=== PATIENT | male | born 1995 | race Caucasian/White ===

== ENCOUNTER 2017-08-12 18:01 | Emergency (ER) | payer BC, OTHER ==
[2017-08-12 18:07] VITALS: BP 128/76; PULSE 86; RESP 16; TEMP 98.9; O2SAT 100
--- NOTE | 2017-08-12 18:45 | ED PDOC ---
HPI: Abdomen Time Seen by Provider: 08/12/17 18:36 Chief Complaint (Nursing): Abdominal Pain Chief Complaint (Provider): Abdominal pain History Per: Patient History/Exam Limitations: no limitations Onset/Duration Of Symptoms: Days (5) Outside of [place] travel?: No Current Symptoms Are (Timing): Still Present Location Of Pain/Discomfort: LLQ Quality Of Discomfort: "Pain" Associated Symptoms: denies: Fever, Chills, Nausea, Vomiting Exacerbating Factors: Movement Additional History Per: Patient Additional Complaint(s): 22yo male, no pertinent medical history, presents to ER for evaluation of left lower quadrant abdominal pain, present for the past 5 days. Patient states the pain started after he lifted something heavy at work. He states the pain worsens with movement and he also has pain upon urination. He denies any hematuria, fever, nausea, vomiting, testicular pain or penile discharge. No other complaints. Past Medical History Reviewed: Historical Data, Nursing Documentation, Vital Signs Vital Signs: Last Vital Signs Temp 98.9 F 08/12/17 18:05 Pulse 86 08/12/17 18:05 Resp 16 08/12/17 18:05 BP 128/76 08/12/17 18:05 Pulse Ox 100 08/12/17 18:47 - Medical History PMH: Migraine - Surgical History Surgical History: No Surg Hx - Family History Family History: States: Diabetes - Home Medications Home Medications: Ambulatory Orders Medication Instructions Recorded Acetaminophen/Butalbital/Caf 1 tab PO Q8 #30 tab 03/14/14 [Fioricet 325 mg-50 mg-40 mg] Tizanidine Hydrochloride 4 mg PO Q6 PRN #20 tab 03/16/15 [Tizanidine HCl] Tramadol Hydrochloride [Tramadol 50 mg PO Q6H PRN #20 tab 03/16/15 HCl] Clotrimazole 1% Cream [Lotrimin 1% 15 applic EXT BID #1 tube 03/26/15 CREAM] Naproxen 1 tab PO TID PRN #21 tab 08/22/15 Naproxen [Naprosyn] 500 mg PO BID PRN #15 tablet 08/12/17 - Allergies Allergies/Adverse Reactions: Allergies Allergy/AdvReac Type Severity Reaction Status Date / Time No Known Allergies Allergy Verified 03/16/15 17:56 Review of Systems ROS Statement: Except As Marked, All Systems Reviewed And Found Negative Constitutional: Negative for: Fever, Chills Gastrointestinal: Positive for: Abdominal Pain. Negative for: Nausea, Vomiting Genitourinary Male: Positive for: Dysuria. Negative for: Hematuria, Penile Discharge, Scrotal Pain, Penile Pain Physical Exam - Reviewed Nursing Documentation Reviewed: Yes Vital Signs Reviewed: Yes - Physical Exam Appears: Positive for: Non-toxic, No Acute Distress Head Exam: Positive for: ATRAUMATIC, NORMAL INSPECTION, NORMOCEPHALIC Skin: Positive for: Normal Color Eye Exam: Positive for: Normal appearance Neck: Positive for: Supple Cardiovascular/Chest: Positive for: Regular Rate, Rhythm Respiratory: Positive for: Normal Breath Sounds. Negative for: Respiratory Distress Gastrointestinal/Abdominal: Positive for: Soft, Tenderness (left lowerquadrant) . Negative for: Guarding, Rebound Male Genital Exam: Positive for: normal genitalia, no hernia. Negative for: scrotum tenderness (R), scrotum tenderness (L), testicular tenderness (R), testicular tenderness (L), urethral discharge Extremity: Positive for: Normal ROM Neurologic/Psych: Positive for: Alert, Oriented. Negative for: Motor/Sensory Deficits - Laboratory Results Result Diagrams: 08/12/17 18:50 08/12/17 18:50 - ECG O2 Sat by Pulse Oximetry: 100 (RA) Pulse Ox Interpretation: Normal Medical Decision Making Medical Decision Making: Impression: Abdominal Pain Plan: -- Labs -- Morphine 2mg IV -- CT Abdomen & Pelvis w/ IV Contrast Accession No. : [id number] Patient Name / ID : RANCHO DUBOIS / [id number] Exam Date : 08/12/2017 22:59:10 ( Approved ) Study Comment : Sex / Age : M / 22Y Creator : Meño Hillman MD Dictator : Security Clerk : Manager Pet : Meño Hillman MD Approver2 : Report Date : 08/12/2017 23:24:00 My Comment : [facility] Division of Radiology [address] [facility] [address] Tel. no. Patient Name: SILVINO VICKERS Pt. Address: [address] [place] [address]. Rec #: [id number] [place] [address]: Irasema FLORES,Shruti Spear Pt CELL Order Location: [place] : 1995 Male Age: 22 Order #: [id number] Reason for exam: LLQ pain CT Scan ABD PELVIS IV CONTRAST ONLY Exam Date: 08/12/17 This imaging exam was performed at [facility] EXAM: CT Abdomen and Pelvis With Intravenous Contrast CLINICAL HISTORY: 22 years old, male; Pain; Abdominal pain; Localized; Left; Patient HX: Llq pain TECHNIQUE: Axial computed tomography images of the abdomen and pelvis with intravenous contrast. All CT scans at this facility use one or more dose reduction techniques, viz.: automated exposure control; ma/kV adjustment per patient size (including targeted exams where dose is matched to indication; i.e. head); or iterative reconstruction technique. Coronal and sagittal reformatted images were created and reviewed. CONTRAST: 98 mL of OMNIPAQUE administered intravenously. COMPARISON: CT ABD 2013-08-27 22:03 FINDINGS: Lower thorax: No acute findings. ABDOMEN: Liver: Fatty infiltration. Gallbladder and bile ducts: No calcified stones. No ductal dilation. Pancreas: No ductal dilation. No mass. Spleen: No splenomegaly. Adrenals: No mass. Kidneys and ureters: No mass. No hydronephrosis. Stomach and bowel: Segmental areas of probable underdistention of LEFT colon. No definite mural thickening. No obstruction. Fat containing lesion with hyperdense rim and adjacent stranding along border of descending colon. Appendix: Normal caliber. No inflammation. PELVIS: Bladder: Unremarkable. Reproductive: Unremarkable as visualized. ABDOMEN and PELVIS: Intraperitoneal space: No significant fluid collection. No free air. Bones/joints: No acute fracture. Soft tissues: Tiny umbilical hernia containing fat. Vasculature: Unremarkable. No aneurysm. Lymph nodes: No pathologically enlarged lymph nodes. IMPRESSION: 1. Epiploic appendagitis of descending colon. 2. Incidental/non-acute findings are described above. Dictated By: Meño Hillman MD Dictated Date/Time: 08/12/172323 Signed By: Meño Hillman MD Date Signed: 2323 Transcribed By: XAVIER Transcribe Date/Time : 08/12/172323 [id number]/NICK Scribe Attestation: Documented by Susie Titus acting as a scribe for Shruti Villalpando MD. Provider Attestation: All medical record entries made by the Scribe were at my direction and personally dictated by me. I have reviewed the chart and agree that the record accurately reflects my personal performance of the history, physical exam, medical decision making, and the department course for this patient. I have also personally directed, reviewed, and agree with the discharge instructions and disposition. Disposition - Clinical Impression Clinical Impression: Epiploic appendagitis - Disposition Referrals: [facility] [Outside] Chidi Salgado MD [Staff Provider] - Disposition: Routine/Home Disposition Time: 23:40 Condition: STABLE Prescriptions: Naproxen [Naprosyn] 500 mg PO BID PRN #15 tablet PRN Reason: Pain, Moderate (4-7) Instructions: Acute Abdomen (Belly Pain) Forms: [facility] (Hungarian)
[2017-08-12 19:24] LABS: BASO # 0.1 K/uL (0.0-0.2); BASO % 0.9 % (0.0-2.0); EOS # 0.5 K/uL (0.0-0.7); EOS % 4.6 % (0.0-4.0); HEMOGLOBIN 17.7 g/dL (12.0-18.0); LYMPH # 2.7 K/uL (1.0-4.3); LYMPH % 24.4 % (20.0-40.0); MEAN CELL VOLUME 86.5 fl (80.0-94.0); MEAN CORPUSCULAR HEMOGLOBIN 30.5 pg (27.0-31.0); MEAN CORPUSCULAR HGB CONC 35.3 g/dL (33.0-37.0); MEAN PLATELET VOLUME 7.6 fl (7.2-11.7); MONO # 0.8 K/uL (0.0-0.8); MONO % 7.3 % (0.0-10.0); NEUT % 62.8 % (50.0-75.0); NRBC % 0.2 % (0.0-0.0); RBC 5.8 Mil/uL (4.40-5.90); RED CELL DISTRIBUTION WIDTH 13.7 % (11.5-14.5); WHITE BLOOD COUNT 11.2 K/uL (4.8-10.8)
[2017-08-12 19:33] LABS: ALB/GLOB RATIO 1.1 (1.0-2.1); ALBUMIN 4.5 g/dL (3.5-5.0); CALCIUM 9.6 mg/dL (8.4-10.2); GFR AFRICAN-AMERICAN > 60; GFR NON-AFRICAN AMERICAN > 60
[2017-08-12 19:39] LABS: ALT/SGPT 53 U/L (21-72); AST/SGOT 41 U/L (17-59); BLOOD UREA NITROGEN 14 mg/dl (9-20)
[2017-08-12 19:54] LABS: URINE BILIRUBIN NEGATIVE (NEGATIVE); URINE BLOOD NEGATIVE (NEGATIVE); URINE CLARITY SLIGHTY-CLOUDY (Clear); URINE COLOR YELLOW (YELLOW); URINE GLUCOSE (UA) NEG (Normal); URINE LEUKOCYTE ESTERASE NEG Leu/uL (Negative); URINE PROTEIN NEGATIVE (NEGATIVE); URINE UROBILINOGEN 0.2-1.0 mg/dL (0.2-1.0)
[2017-08-12 19:56] LABS: PROTHROMBIN TIME 11.4 Seconds (9.8-13.1)
[2017-08-12 19:57] LABS: PARTIAL THROMBOPLASTIN TIME 34.2 Seconds (25.6-37.1)
[2017-08-12] MEDS ORDERED: Iohexol 300 100 ML IJ ONE (22:57)
--- NOTE | 2017-08-12 23:24 | CT ---
EXAM: CT Abdomen and Pelvis With Intravenous Contrast CLINICAL HISTORY: 22 years old, male; Pain; Abdominal pain; Localized; Left; Patient HX: Llq pain TECHNIQUE: Axial computed tomography images of the abdomen and pelvis with intravenous contrast. All CT scans at this facility use one or more dose reduction techniques, viz.: automated exposure control; ma/kV adjustment per patient size (including targeted exams where dose is matched to indication; i.e. head); or iterative reconstruction technique. Coronal and sagittal reformatted images were created and reviewed. CONTRAST: 98 mL of OMNIPAQUE administered intravenously. COMPARISON: CT ABD 2013-08-27 22:03 FINDINGS: Lower thorax: No acute findings. ABDOMEN: Liver: Fatty infiltration. Gallbladder and bile ducts: No calcified stones. No ductal dilation. Pancreas: No ductal dilation. No mass. Spleen: No splenomegaly. Adrenals: No mass. Kidneys and ureters: No mass. No hydronephrosis. Stomach and bowel: Segmental areas of probable underdistention of LEFT colon. No definite mural thickening. No obstruction. Fat containing lesion with hyperdense rim and adjacent stranding along border of descending colon. Appendix: Normal caliber. No inflammation. PELVIS: Bladder: Unremarkable. Reproductive: Unremarkable as visualized. ABDOMEN and PELVIS: Intraperitoneal space: No significant fluid collection. No free air. Bones/joints: No acute fracture. Soft tissues: Tiny umbilical hernia containing fat. Vasculature: Unremarkable. No aneurysm. Lymph nodes: No pathologically enlarged lymph nodes. IMPRESSION: 1. Epiploic appendagitis of descending colon. 2. Incidental/non-acute findings are described above.
== END 2017-08-12 23:47 | disposition home or self-care (01) ==
LOC: H.ER 18:01
DX: K63.89 Other specified diseases of intestine (principal)
CPT/HCPCS: 74177; 80053; 81003; 85025; 85610; 85730; 96374; 99282; J2270; Q9967

== ENCOUNTER 2018-05-05 19:13 | Emergency (ER) | payer SELFPAY ==
[2018-05-05 19:34] VITALS: RESP 18
[2018-05-05] MEDS ORDERED: Sodium Chloride 0.9% 1,000 ML IV STA (19:47)
--- NOTE | 2018-05-05 19:51 | ED PDOC ---
HPI: Abdomen Time Seen by Provider: 05/05/18 19:41 Chief Complaint (Nursing): GI Problem Chief Complaint (Provider): [place] and Vomiting History Per: Patient Additional Complaint(s): 22 yo male, no PMH, presents to ED with abdominal cramping, nausea and vomiting since thus morning. Pt notes that he had a "Friendsgiving" yesterday and is concnered he ate something bad. No fever or chills, no diarrhea. Patient reports his ate the same meal and has been having diarrhea since. Past Medical History Reviewed: Nursing Documentation, Vital Signs Vital Signs: Last Vital Signs Temp 98.3 F 05/05/18 19:33 Pulse 88 05/05/18 19:33 Resp 18 05/05/18 19:33 BP 125/77 05/05/18 19:33 Pulse Ox 99 05/05/18 19:33 - Medical History PMH: Migraine - Surgical History Surgical History: No Surg Hx - Family History Family History: States: Diabetes - Living Arrangements Living Arrangements: With Family - Social History Current smoker - smoking cessation education provided: No Alcohol: Social Drugs: Denies - Home Medications Home Medications: Ambulatory Orders Medication Instructions Recorded Acetaminophen/Butalbital/Caf 1 tab PO Q8 #30 tab 03/14/14 [Fioricet 325 mg-50 mg-40 mg] Tizanidine Hydrochloride 4 mg PO Q6 PRN #20 tab 03/16/15 [Tizanidine HCl] Tramadol Hydrochloride [Tramadol 50 mg PO Q6H PRN #20 tab 03/16/15 HCl] Clotrimazole 1% Cream [Lotrimin 1% 15 applic EXT BID #1 tube 03/26/15 CREAM] Naproxen 1 tab PO TID PRN #21 tab 08/22/15 Naproxen [Naprosyn] 500 mg PO BID PRN #15 tablet 08/12/17 - Allergies Allergies/Adverse Reactions: Allergies Allergy/AdvReac Type Severity Reaction Status Date / Time No Known Allergies Allergy Verified 03/16/15 17:56 Review of Systems ROS Statement: Except As Marked, All Systems Reviewed And Found Negative Gastrointestinal: Positive for: Nausea, Vomiting, Abdominal Pain Physical Exam - Reviewed Nursing Documentation Reviewed: Yes Vital Signs Reviewed: Yes - Physical Exam Appears: Positive for: Well, Non-toxic, No Acute Distress Head Exam: Positive for: ATRAUMATIC, NORMAL INSPECTION, NORMOCEPHALIC Skin: Positive for: Normal Color, Warm, DRY Eye Exam: Positive for: EOMI, Normal appearance, PERRL ENT: Positive for: Normal ENT Inspection Neck: Positive for: Normal, Painless ROM Cardiovascular/Chest: Positive for: Regular Rate, Rhythm Respiratory: Positive for: CNT, Normal Breath Sounds Gastrointestinal/Abdominal: Positive for: Soft, Tenderness (epigastric). Negative for: Distended, Guarding Back: Positive for: Normal Inspection Extremity: Positive for: Normal ROM Neurologic/Psych: Positive for: Alert, Oriented - ECG O2 Sat by Pulse Oximetry: 99 Medical Decision Making Medical Decision Making: IV access established and treatment initiated with IVF, Pepcid and Zofran Diagnostic ordered. case endorsed to JOSE R Garcia at 2000 pending diagnostic review and re-eval Disposition - Clinical Impression Clinical Impression: Nausea and vomiting - Patient ED Disposition Is Patient to be Admitted: Transfer of Care - Disposition Disposition: Transfer of Care Disposition Time: 19:53 Condition: STABLE
[2018-05-05 20:31] LABS: BASO # 0.1 K/uL (0.0-0.2); BASO % 0.9 % (0.0-2.0); EOS % 0.1 % (0.0-4.0); HEMOGLOBIN 16.3 g/dL (12.0-18.0); LYMPH % 6.9 % (20.0-40.0); MEAN CELL VOLUME 87.5 fl (80.0-94.0); MEAN CORPUSCULAR HEMOGLOBIN 29.5 pg (27.0-31.0); MEAN CORPUSCULAR HGB CONC 33.7 g/dL (33.0-37.0); MEAN PLATELET VOLUME 7.5 fl (7.2-11.7); MONO # 0.5 K/uL (0.0-0.8); MONO % 3.2 % (0.0-10.0); NEUT % 88.9 % (50.0-75.0); PLATELET COUNT 363 K/uL (130-400); RBC 5.52 Mil/uL (4.40-5.90); RED CELL DISTRIBUTION WIDTH 13.6 % (11.5-14.5); WHITE BLOOD COUNT 14.6 K/uL (4.8-10.8)
[2018-05-05 20:36] LABS: SQUAMOUS EPITHIAL < 1 /hpf (0-5); URINE BACTERIA RARE (<OCC); URINE BILIRUBIN NEGATIVE (NEGATIVE); URINE BLOOD NEGATIVE (NEGATIVE); URINE CLARITY SLIGHTY-CLOUDY (Clear); URINE COLOR YELLOW (YELLOW); URINE GLUCOSE (UA) NEG (Normal); URINE LEUKOCYTE ESTERASE NEG Leu/uL (Negative); URINE PROTEIN 100 mg/dL (NEGATIVE); URINE UROBILINOGEN 0.2-1.0 mg/dL (0.2-1.0)
[2018-05-05 20:44] LABS: ALB/GLOB RATIO 1.3 (1.0-2.1); ALBUMIN 4.7 g/dL (3.5-5.0); ALT/SGPT 40 U/L (21-72); AMYLASE 73 U/L (30-110); AST/SGOT 28 U/L (17-59); BLOOD UREA NITROGEN 12 mg/dl (9-20); CALCIUM 9.3 mg/dL (8.4-10.2); GFR NON-AFRICAN AMERICAN > 60; LIPASE 62 U/L (23-300)
[2018-05-05 20:58] LABS: BANDS 1 % (0-2); EOSINOPHIL 1 % (0-7); LYMPHOCYTE 6 % (20-50); MONOCYTE 3 % (0-10); NEUTROPHIL 89 % (42-75); TOTAL CELLS COUNTED 100
[2018-05-05 20:59] LABS: PLATELET ESTIMATE NORMAL (NORMAL)
[2018-05-05 22:37] VITALS: BP 125/67; PULSE 65; TEMP 98; O2SAT 100
--- NOTE | 2018-05-05 22:46 | ED PDOC ---
- Laboratory Results Result Diagrams: 05/05/18 20:28 05/05/18 20:28 - ECG O2 Sat by Pulse Oximetry: 100 - Progress ED Course And Treament: Endorsed pending labs and re-evaluation. Pt reports feeling much better at 10:45. Pt denies nausea and abdominal pain. Abdomen non-tender. Disposition - Clinical Impression Clinical Impression: Nausea and vomiting - POA Present On Arrival: None - Disposition Referrals: Aron Ward MD [Staff Provider] - Disposition: Routine/Home Disposition Time: 22:45 Condition: GOOD Prescriptions: Famotidine [Pepcid] 20 mg PO BID #28 tab Ondansetron [Zofran Odt] 4 mg PO Q4H PRN #10 odt PRN Reason: Nausea Instructions: Nausea and Vomiting, Adult Forms: [facility] (Northern Irish)
== END 2018-05-05 23:16 | disposition home or self-care (01) ==
LOC: H.ER 19:13
DX: R11.2 Nausea with vomiting, unspecified (principal)
CPT/HCPCS: 80053; 81003; 82150; 83690; 85025; 96374; 96375; 99284; J2405; J7030